=== PATIENT | male | born 1985 | race American Indian/Alaskan Native ===

== ENCOUNTER 2018-08-24 20:03 | Emergency (ER) | payer SELFPAY ==
[2018-08-24 20:54] LABS: Basophils % (Auto) 0.4 % (0.0-1.8); Eosinophils # (Auto) 0.2 K/mm3 (0.0-0.4); Eosinophils % (Auto) 3.1 % (0.0-4.3); Hematocrit 42.3 % (35.5-45.6); Hemoglobin 14.6 gm/dl (11.8-15.2); Lymphocytes # (Auto) 3.1 K/mm3 (1.2-5.4); Lymphocytes % (Auto) 38.5 % (13.4-35.0); Mean Corpuscular HGB Conc 34 % (32-34); Mean Corpuscular Volume 88 fl (84-94); Monocytes # (Auto) 0.5 K/mm3 (0.0-0.8); Monocytes % (Auto) 6.3 % (0.0-7.3); Platelet Count 179 K/mm3 (140-440); Red Blood Count 4.81 M/mm3 (3.65-5.03); Red Cell Distribution Width 13.3 % (13.2-15.2)
[2018-08-24 20:59] LABS: Bilirubin,Urine NEG (Negative); Blood,Urine NEG (Negative); Color,Urine Yellow (Yellow); Protein,Urine <15 mg/dL mg/dL (Negative)
[2018-08-24 22:07] LABS: BUN/Creatinine Ratio 15; Blood Urea Nitrogen 18 mg/dL (9-20); Calcium 9.3 mg/dL (8.4-10.2); Hemolysis Index 30
[2018-08-24] MEDS ORDERED: TORADOL IM ONE (22:07)
--- NOTE | 2018-08-24 23:11 | Emergency Department Report ---
ED Abdominal Pain HPI - General Chief Complaint: Back Pain/Injury Stated Complaint: LEFT SIDE PAIN Time Seen by Provider: 08/24/18 20:57 Source: patient Mode of arrival: Ambulatory Limitations: No Limitations - History of Present Illness Initial Comments: There is a 33-year-old [place] male who presents for left flank pain times yesterday patient denies fevers or chills no nausea vomiting or shortness of breath or chest pain patient has no history of GERD no history of renal stones patient is a smoker and does drink socially no history of pancreatitis pain is rated at 4/10 left flank is no hematuria or urinary frequency urgency or dysuria there is no flow problem patient is tolerating by mouth intake without nausea vomiting this time. last BM this am normal MD Complaint: abdominal pain, flank pain Onset/Timin -: days(s) Location: LLQ, L flank Radiation: none Migration to: no migration Severity: moderate Severity scale (0 -10): 8 Quality: aching Consistency: intermittent Improves With: rest Worsens With: eating, movement Associated Symptoms: denies: nausea, vomiting, diarrhea, fever, chills, constipation, dysuria, hematemesis, hematochezia, melena, hematuria, anorexia, syncope - Related Data Previous Rx's Medication Instructions Recorded Last Taken Type Dicyclomine [Bentyl] 10 mg PO QID PRN #30 capsule 08/25/18 Unknown Rx Naproxen 500 mg PO BID PRN #30 tablet 08/25/18 Unknown Rx Polyethylene Glycol 3350 [Miralax 17 gm PO BID PRN #14 packet 08/25/18 Unknown Rx 3350] Allergies Allergy/AdvReac Type Severity Reaction Status Date / Time No Known Allergies Allergy Unverified 08/24/18 20:05 ED Review of Systems ROS: Stated complaint: LEFT SIDE PAIN Other details as noted in HPI ED Past Medical Hx - Past Medical History Previous Medical History?: No - Surgical History Past Surgical History?: No - Social History Smoking Status: Never Smoker Substance Use Type: None - Medications Home Medications: Home Medications Medication Instructions Recorded Confirmed Last Taken Type Dicyclomine [Bentyl] 10 mg PO QID PRN #30 capsule 08/25/18 Unknown Rx Naproxen 500 mg PO BID PRN #30 tablet 08/25/18 Unknown Rx Polyethylene Glycol 3350 [Miralax 17 gm PO BID PRN #14 packet 08/25/18 Unknown Rx 3350] ED Physical Exam - General Limitations: No Limitations ED Course Vital Signs 08/24/18 08/24/18 20:15 22:21 Temperature 97.9 F Pulse Rate 68 Respiratory 18 18 Rate Blood Pressure 120/66 O2 Sat by Pulse 99 Oximetry ED Medical Decision Making - Lab Data Result diagrams: 08/24/18 20:34 08/24/18 20:34 - Radiology Data Radiology results: report reviewed, image reviewed FINAL REPORT PROCEDURE: Abdomen. TECHNIQUE: AP upright view. HISTORY: Abdominal pain. COMPARISON: No prior studies are available for comparison. FINDINGS: The bowel gas pattern is normal. There are no signs of obstruction. The soft tissues and regional skeleton are unremarkable. There is no evidence of pneumoperitoneum. IMPRESSION: Normal study. Transcribed By: MRM Dictated By: MADIE ALVES MD Electronically Authenticated By: MADIE ALVES MD Signed Date/Time: 08/25/1815 DD/ TD/TT: 08/25/1814 - Medical Decision Making Pain improved with toradol, cmp, cbc, ua normal, there is no fever no chills no n/v KUB: non obstructive gas pattern plan, miralaz, pepcid, decrease ETOH intake follow up with pcp in 2-3 days pt verbalized agreement and understanding and agreement with discharge plan. pt for dc to home in stable condition at this time Critical care attestation.: If time is entered above; I have spent that time in minutes in the direct care of this critically ill patient, excluding procedure time. ED Disposition Clinical Impression: Abdominal pain Qualifiers: Abdominal location: left lower quadrant Qualified Code(s): R10.32 - Left lower quadrant pain Disposition: DC-01 TO HOME OR SELFCARE Is pt being admited?: No Does the pt Need Aspirin: No Condition: Stable Instructions: Abdominal Pain (ED), High Fiber Diet (ED) Prescriptions: Dicyclomine [Bentyl] 10 mg PO QID PRN #30 capsule PRN Reason: abdominal spasm Naproxen 500 mg PO BID PRN #30 tablet PRN Reason: Pain , Severe (7-10) Polyethylene Glycol 3350 [Miralax 3350] 17 gm PO BID PRN #14 packet PRN Reason: Constipation Referrals: MAR[facility]PLACED BY [facility] MD MARCIAL [Primary Care Provider] - 3-5 Days Forms: Work/School Release Form(ED) Time of Disposition: 00:41
[2018-08-25 00:13] LABS: Alanine Aminotransferase 17 units/L (7-56); Albumin 4.3 g/dL (3.9-5)
--- NOTE | 2018-08-25 00:16 | XRay Report ---
FINAL REPORT PROCEDURE: Abdomen. TECHNIQUE: AP upright view. HISTORY: Abdominal pain. COMPARISON: No prior studies are available for comparison. FINDINGS: The bowel gas pattern is normal. There are no signs of obstruction. The soft tissues and regional ske leton are unremarkable. There is no evidence of pneumoperitoneum. IMPRESSION: Normal study.
[2018-08-25 00:19] LABS: Bilirubin,Direct < 0.2 mg/dL (0-0.2)
[2018-08-25 01:19] VITALS: BP 113/62
== END 2018-08-25 01:18 | disposition home or self-care (01) ==
LOC: ED 20:03
DX: R10.32 Left lower quadrant pain (principal)
CPT/HCPCS: 36415; 74018; 80048; 80076; 81001; 83690; 85025; 96372; 99284; J1885